=== PATIENT | male | born 1960 | race Hispanic/Latino ===

== ENCOUNTER → 2020-12-15 | Outpatient (CLI) | payer BC ==
[~2020-12-15] MED LIST: GADOBENATE DIMEGLUMINE 1 ML IV ONE; IOPAMIDOL 300 MG/ML 15ML VIAL IT ONE
== END ==
LOC: DX 09:15
PROVIDERS: ATTEND Specialist
DX: S43.432A Superior glenoid labrum lesion of left shoulder, initial encounter (principal)
CPT/HCPCS: 23350; 73222; A9577; Q9967

== ENCOUNTER → 2021-07-19 | Day surgery (SDC) | payer BC ==
[2021-07-18 10:45] VITALS: BP 120/64
[~2021-07-19] MED LIST changes: +DEXAMETHASONE SOD PHOS INJ 4 MG/ML SDV ONE; +EPHEDRINE SULFATE INJ 50 MG/ML VIAL ONE; +EPINEPHRINE 1 MG/ML 30ML VIAL ONE; +FENTANYL CITRATE/PF 100MCG/2 ML INJ ONE; -GADOBENATE DIMEGLUMINE 1 ML IV ONE; +GLYCOPYRROLATE INJ 0.2 MG/ML VIAL ONE; +INDOCIN50 MG PO; -IOPAMIDOL 300 MG/ML 15ML VIAL IT ONE; +LEVOTHYROXINE112 MCG PO; +LIDOCAINE HCL 2% LOCAL 20 ML VIAL ONE; +LIDOCAINE HCL 2% LOCAL INJ 5 ML SDV VIAL INJ ONE; +MIDAZOLAM HCL 2 MG/2 ML VIAL ONE; +NEOSTIGMINE 1 MG/ML 10ML VIAL ONE; +ONDANSETRON HCL INJ 2MG/ML 2ML 2 MG/ML VIAL ONE; +POVIDONE IODINE 0.05% 0.05 % ML PO ONE; +PROPOFOL IV EMULSION 10 MG/ML 20 ML VIAL ONE; +ROPIVACAINE 0.5% 5 MG/ML 30 ML SDV ONE; +SEVOFLURANE INHAL SOLN 250 ML PEN BTL ONE; +SIMVASTATIN40 MG PO; +SODIUM CHLORIDE 0.9% 50ML 100 ML ONE; +[UNRECOGNIZED DRUG - OTHER] PO
== END | disposition home or self-care (01) ==
LOC: OR 06:00
PROVIDERS: ATTEND Specialist
DX: M75.122 Complete rotator cuff tear or rupture of left shoulder, not specified as traumatic (principal); S43.432A Superior glenoid labrum lesion of left shoulder, initial encounter; M65.812 Other synovitis and tenosynovitis, left shoulder; E03.9 Hypothyroidism, unspecified; K76.0 Fatty (change of) liver, not elsewhere classified; E78.5 Hyperlipidemia, unspecified; R00.1 Bradycardia, unspecified; F17.210 Nicotine dependence, cigarettes, uncomplicated; X58.XXXA Exposure to other specified factors, initial encounter; Z88.6 Allergy status to analgesic agent; Z01.810 Encounter for preprocedural cardiovascular examination; Z01.812 Encounter for preprocedural laboratory examination; Z20.822 Contact with and (suspected) exposure to COVID-19; Z79.899 Other long term (current) drug therapy
CPT/HCPCS: 29826; 29827; 93005; C1713; J0690; J1100; J2001 ×2; J2250; J2405; J2704; J2710; J2795; J3010; U0002